=== PATIENT | female | born 1960 | race Caucasian/White ===

== ENCOUNTER → 2020-11-10 | Outpatient (CLI) | payer OTHER | LOC: EXRD 13:53 | DX: M79.643 Pain in unspecified hand (principal) | CPT/HCPCS: 73130 ==

== ENCOUNTER → 2020-12-08 | Outpatient (CLI) | payer OTHER | LOC: RAD 17:05 | DX: M25.551 Pain in right hip (principal) | CPT/HCPCS: 73502 ==

== ENCOUNTER → 2021-07-13 | Outpatient (CLI) | payer OTHER ==
[2021-07-14 12:14] LABS: COMPLEMENT C3, SERUM 110 mg/dL (82-167); COMPLEMENT C4, SERUM 33 mg/dL (12-38)
== END ==
LOC: LAB 09:41
PROVIDERS: Internal Medicine
DX: D89.89 Other specified disorders involving the immune mechanism, not elsewhere classified (principal); R76.8 Other specified abnormal immunological findings in serum; M25.50 Pain in unspecified joint
CPT/HCPCS: 36415; 81001; 82570; 84156; 86160; 86255